=== PATIENT | male | born 1960 | race Caucasian/White ===

== ENCOUNTER 2016-05-13 09:02 | Day surgery (SDC) | payer OTHER ==
[2016-05-13] VITALS (9 sets, daily range): BP systolic 117–140; BP diastolic 60–81; PULSE 66–76; TEMP 97.7
[~2016-05-13] VITALS: Ht 175.3 cm; Wt 115.9 kg
[2016-05-13] MEDS ORDERED: TRICOR145 MG PO (09:10)
[2016-05-13] MEDS ORDERED: ASPIRIN 81M81 MG/TA2 PO (09:10)
[2016-05-13] MEDS ORDERED: INSLANT SQ (09:11)
[2016-05-13] MEDS ORDERED: BYDUREON PEN2 MG SQ (09:12)
[2016-05-13] MEDS ORDERED: RT ADVAIR 228 DISKUS IH (09:12)
[2016-05-13] MEDS ORDERED: PROAIR HFA0.09 MG/AC IH (09:13)
[2016-05-13] MEDS ORDERED: COREG12.5 MG PO (09:14)
[2016-05-13] MEDS ORDERED: HYZAAR 25 MG-101 TAB PO (09:14)
[2016-05-13] MEDS ORDERED: VITAMIN D32000 I1 PO (09:15)
[2016-05-13] MEDS ORDERED: IBU800 M1 PO (09:15)
[2016-05-13] MEDS ORDERED: OMEGA-31 SGL PO (09:15)
[2016-05-13] MEDS ORDERED: LIPITOR 40MG TA40 MG PO (09:16)
[2016-05-13 09:42] LABS: PROTHROMBIN TIME 10.9 SECONDS (9.7-12.8)
[2016-05-13 09:43] LABS: HEMATOCRIT 49.6 % (42.0-52.0); HEMOGLOBIN 16.6 g/dl (13.5-18.0); MEAN CELL VOLUME 88 fl (80.0-100.0); MEAN CORPUSCULAR HEMOGLOBIN 30 pg (27.0-31.0); MEAN CORPUSCULAR HGB CONC 34 g/dl (33.0-37.0); MEAN PLATELET VOLUME 10.4 fl (7.4-10.4); PLATELET COUNT 226 K/mm3 (130-400); RED BLOOD COUNT 5.63 M/mm3 (4.20-5.60); REDCELL DISTRIBUTION WIDTH-CV 12.1 % (11.5-14.5); WHITE BLOOD COUNT 6.2 K/mm3 (4.8-10.8)
[2016-05-13 09:49] LABS: CALCIUM 9.8 mg/dL (8.4-10.2); CREATININE, serum 1.05 mg/dL (0.66-1.25); POTASSIUM 4.3 mmol/L (3.4-5.0)
== END 2016-05-13 17:23 | disposition home or self-care (01) ==
LOC: EUO 09:02
PROVIDERS: Internal Medicine Cardiovascular Disease
DX: I25.10 Atherosclerotic heart disease of native coronary artery without angina pectoris (principal); I10 Essential (primary) hypertension; R94.39 Abnormal result of other cardiovascular function study; M25.511 Pain in right shoulder; M54.5 Low back pain; E78.5 Hyperlipidemia, unspecified; Z80.9 Family history of malignant neoplasm, unspecified; F17.220 Nicotine dependence, chewing tobacco, uncomplicated
CPT/HCPCS: C1887; C1894; J1644; J2250; J3010; Q9967